=== PATIENT | female | born 1980 | race Caucasian/White ===

== ENCOUNTER 2016-07-06 11:49 | Observation (INO) ==
[2016-07-06 12:21] VITALS: BP 143/79
[2016-07-06 12:25] LABS: Bilirubin,Urine Negative (Negative); Blood,Urine Negative (Negative); Clarity,Urine Cloudy (Clear); Color,Urine Yellow (Yellow); Glucose,Urine (UA) Normal (Normal); Ketones,Urine Negative (Negative); Leukocyte Esterase,Urine Negative (Negative); Nitrite,Urine Positive (Negative); Protein,Urine Trace mg/dL (Neg-Trace); Specific Gravity,Urine 1.021 (1.010-1.025); Urobilinogen,Urine Normal (Normal)
[2016-07-06 12:27] LABS: Hyaline Casts,Urine None Seen per lpf (None-Few); RBC,Urine 0-3 per hpf (0-3)
--- NOTE | 2016-07-06 12:32 | OB/GYN Progress Note ---
Date of Encounter: 07/06/16 Time of Encounter: 12:27 - Assessment and Plan (1) 20 weeks gestation of Current Visit: Yes Status: Acute admit for observation (2) Morbid obesity Current Visit: Yes Status: Acute Qualifiers: Obesity type: unspecified obesity type Qualified Code(s): E66.01 - Morbid ( severe) obesity due to excess calories (3) History of delivery, currently Current Visit: Yes Status: Acute Subjective - Subjective Principal diagnosis: decreased movement and lower abd pain Interval history: Patient is a 36 y/o at 20w4d presents to labor and delivery for decreased movement and lower abdominal pain. Patient denies LOF, VB or contractions. Patient reports she was transferred to [facility] from Dr. Lewis for Hypertension and morbid obesity. Patient reports she delivered her first at 30 weeks via for PIH. Patient denies visual disturbances, epigastric pain or swelling. Antepartum ROS: no loss of fluid, no vaginal bleeding, no contractions Objective - Vital Signs Vital Signs: Vital Signs Temp Pulse Resp BP 07/06/16 12:03 98.2 F 80 20 143/79 Intake and Output 07/05/16 07/06/16 07/06/16 23:59 07:59 15:59 Other: Weight 154 kg Patient Weight 07/06/16 23:59 Weight 154 kg - Exam FHR comments: FHT per doppler 160 bpm Auscultation: bilateral: normal Abdomen: Present: normal appearance, soft, gravid
[2016-07-06 12:39] LABS: Mucus,Urine Few (Few); Squamous Epithelial Cell,Urine Moderate per lpf (None-Few)
[2016-07-06 12:40] LABS: Bacteria,Urine Many per hpf (None-Few)
--- NOTE | 2016-07-06 12:54 | Discharge Summary ---
Date of Encounter: 07/06/16 Time of Encounter: 12:52 - Discharge Diagnosis (1) 20 weeks gestation of Priority: Secondary Status: Acute (2) Morbid obesity Priority: Secondary Status: Acute Qualifiers: Obesity type: unspecified obesity type Qualified Code(s): E66.01 - Morbid ( severe) obesity due to excess calories (3) History of delivery, currently Priority: Secondary Status: Acute (4) Urinary tract infection affecting care of mother in second trimester, antepartum Priority: Primary Status: Acute Comments: start Macrobid 100mg po BID daily - Discharge Medications Prescriptions: Nitrofurantoin (BID) [Macrobid] 100 mg PO BID #14 capsule Home Medications: Pnv95/Iron Fum/Folic Acid [ Caplet] 1 each PO DAILY #30 tablet 03/16/16 [Rx] Nitrofurantoin (BID) [Macrobid] 100 mg PO BID #14 capsule 07/06/16 [Rx] Allergies/Adverse Reactions: Allergies aspirin Allergy (Verified 07/06/16 10:49) Rash Penicillins [PCN] Allergy (Verified 07/06/16 10:49) Rash Data Procedures and tests throughout hospitalization: Laboratory Tests 07/06/16 12:04 Urine Color Yellow Urine Clarity Cloudy A Urine pH 7.0 Ur Specific Forgan 1.021 Urine Protein Trace Urine Glucose (UA) Normal Urine Ketones Negative Urine Blood Negative Urine Nitrite Positive A Urine Bilirubin Negative Urine Urobilinogen Normal Ur Leukocyte Esterase Negative Urine Microscopic RBC 0-3 Urine Microscopic WBC 3-5 H Ur Squamous Epith Cells Moderate H Urine Bacteria Many H Hyaline Casts None Seen Urine Mucus Few Ur Culture Indicated? YES A Labs on day of discharge: Labs from last 24 hours 07/06/16 12:04 Urine Color Yellow Urine Clarity Cloudy A Urine pH 7.0 Ur Specific Forgan 1.021 Urine Protein Trace Urine Glucose (UA) Normal Urine Ketones Negative Urine Blood Negative Urine Nitrite Positive A Urine Bilirubin Negative Urine Urobilinogen Normal Ur Leukocyte Esterase Negative Urine Microscopic RBC 0-3 Urine Microscopic WBC 3-5 H Ur Squamous Epith Cells Moderate H Urine Bacteria Many H Hyaline Casts None Seen Urine Mucus Few Ur Culture Indicated? YES A Date of admission: 07/06/16 11:49 Primary care physician: PCP NO Discharging clinician: Kenna Mckee Anticipated date of discharge: 07/06/16 - Patient Status Disposition: Home, Self-Care Condition: Good Functional capacity at discharge: independent ambulation - Discharge Instructions Follow Up With: NO,PCP [Primary Care Provider] - - Diet and Activity Activity: increase activity as tolerated Diet: regular diet Hospital Course COMMUN[facility] RELATIONS LIAISON Hospital course: UTI in . Patient given RX fo macrobid. Patient instructed to follow up with OBGYN as scheduled. Time Attestation: Total time spent providing and/or coordinating discharge services: Time Spent: Less than 30 minutes Exam - Constitutional Vitals: Temp Pulse Resp BP 98.2 F 80 20 143/79 07/06/16 12:03 07/06/16 12:03 07/06/16 12:03 07/06/16 12:03 - VTE Reasons for not Prescribing Prophylaxis: Treatment not Indicated - Low risk for VTE
== END 2016-07-06 13:03 | disposition home or self-care (01) ==
LOC: 1NENULAB
PROVIDERS: ADMIT Student in an Organized Health Care Education/Training Program; ATTEND Student in an Organized Health Care Education/Training Program